=== PATIENT | female | born 1995 | race Two or more races ===

== ENCOUNTER 2018-04-03 17:19 | Emergency (ER) | payer BC ==
[~2018-04-03] VITALS: Ht 160 cm; Wt 52.6 kg
--- NOTE | 2018-04-03 17:30 | NUR ---
PT CAME IN WITH C/O RIGHT MANDIBULAR AREA SWELLING X 2 DAYS. SEEN BY FOR EVAL. SAFETY AND COMFORT MEASURE PROVIDED. WILL MONITOR.
[2018-04-03] MEDS ORDERED: ONDANSETRON HCL/PF 4 MG/2 ML VIAL IVP ONE (18:00)
[2018-04-03] MEDS ORDERED: IV NS 0.9% 1,000 ML BAG IV ONE (18:00)
[2018-04-03] MEDS ORDERED: MORPHINE SULFATE INJ 2 MG/ML DISP.SYRIN IV ONE ×2 (18:00→20:30)
[2018-04-03 18:10] LABS: BASOPHILS # (AUTO) 0.2 /CMM (0.0-0.2); BASOPHILS % (AUTO) 1.7 % (0.0-2.0); EOSINOPHILS % (AUTO) 0.1 % (0.0-6.0); HEMATOCRIT 38 % (33-45); HEMOGLOBIN 12.8 g/dL (11.5-14.8); LYMPHOCYTES # (AUTO) 0.9 /CMM (0.8-4.8); MEAN CORPUSCULAR HEMOGLOBIN 30 PG (26.0-33.0); MEAN CORPUSCULAR HGB CONC 34 g/dl (31.0-36.0); MEAN CORPUSCULAR VOLUME 89 fL (82-100); MONOCYTES # (AUTO) 0.7 /CMM (0.1-1.30); MONOCYTES % (AUTO) 5.7 % (2.0-12.0); NEUTROPHILS # (AUTO) 11.3 /CMM (1.8-8.9); NEUTROPHILS % (AUTO) 85.5 % (43.0-81.0); PLATELET COUNT (AUTO) 300 /CMM (150-450); RDW COEFFICIENT OF VARIATION 13.1 (11.5-15.0); RED BLOOD CELL COUNT(AUTO) 4.21 MIL/uL (4.0-5.2); WHITE BLOOD COUNT (AUTO) 13.1 K/uL (4.3-11.0)
[2018-04-03] MEDS ORDERED: MORPHINE SULFATE INJ 4 MG/ML DISP.SYRIN ONE ×2 (18:12→20:04)
[2018-04-03] MEDS ORDERED: ONDANSETRON HCL/PF 4 MG/2 ML VIAL ONE (18:12)
--- NOTE | 2018-04-03 18:15 | NUR ---
IV ACCESS STARTED. BLOOD DRAWN FOR LABS. MEDICATED ORDERED.
[2018-04-03 18:25] LABS: CALCIUM, SERUM 9.5 mg/dL (8.5-10.1); CREATININE 0.8 mg/dL (0.6-1.3); POTASSIUM 3.4 mmol/L (3.5-5.1)
[2018-04-03 18:31] LABS: BILIRUBIN,DIRECT 0.2 mg/dL (0.0-0.2); BILIRUBIN,TOTAL 1.3 mg/dL (0.2-1.0); TOTAL PROTEIN, SERUM 8.1 g/dL (6.4-8.2)
[2018-04-03] MEDS ORDERED: IV NS 0.9% 250 ML IV ONE (19:04)
[2018-04-03] MEDS ORDERED: CT SWABBABLE VALVE TRANS SET 1 EA INFUS.SET MC ONE (19:04)
[2018-04-03] MEDS ORDERED: IOHEXOL-300 100 ML VIAL IV ONE (19:04)
--- NOTE | 2018-04-03 19:12 | NUR ---
REPORT RECEIVED FROM ACE ERVIN FOR MOE.
--- NOTE | 2018-04-03 20:25 | NUR ---
IV removed. Catheter intact and site benign. Pressure and 4x4 applied to site. No bleeding noted. Patient discharged with boyfriend to home in stable condition. Written and verbal after care instructions given, patient instructed not to drive. Patient verbalizes understanding of instruction. Patient is awake and alert to self, day, and place. Patient ambulatory with a steady gait.
[2018-04-03 20:28] VITALS: BP 127/77
== END 2018-04-03 20:29 | disposition home or self-care (01) ==
LOC: ER 17:22
DX: K11.20 Sialoadenitis, unspecified (principal)
CPT/HCPCS: 36415; 70491-TC; 80048-TC; 80076-TC; 83605-TC; 84703-TC; 85025-TC; 85730-TC; 87040-TC; A4606; J2270; J2405; J7030; J7050; Q9967; Z7610

== ENCOUNTER 2018-04-03 22:53 | Inpatient (IN) | payer BC ==
[~2018-04-03] VITALS: Ht 160 cm; Wt 54.9 kg
--- NOTE | 2018-04-03 23:15 | NUR ---
BIB BOYFRIEND C/O FEVER AND TROUBLE SWALLOWING X 10:45PM, WAS D/C HERE FOR SALIVARY STONE, UNABLE TO GET MEDICATION AT PHARMACY. PT IS AAOX4. SKIN HOT AND DRY TO TOUCH. -N/V/D. NO S/S OF ACUTE DISTRESS NOTED. RESP EVEN AND UNLABORED. PT PLACED ON MILITARY LAWYER AND POX. PT SAFETY AND COMFORT MEASURES IN PLACE. AWAITING MD FOR EVAL
[2018-04-03] MEDS ORDERED: CLINDAMYCIN 900 MG/6 ML VIAL ONE (23:19)
[2018-04-03] MEDS ORDERED: KETOROLAC TROMETHAMINE INJ 30 MG/ML VIAL ONE (23:22)
[2018-04-03] MEDS: CLINDAMYCIN 600 MG in IV D5W 50 ML IV SCH (23:27)
[2018-04-03] MEDS ORDERED: KETOROLAC TROMETHAMINE INJ 30 MG/ML VIAL IV ONE (23:30)
[2018-04-03] MEDS ORDERED: IV NS 0.9% 1,000 ML BAG IV ONE ×2 (23:30)
--- NOTE | 2018-04-04 00:12 | NUR ---
REPORT GIVEN TO KIM CARELIA FOR MOE
[2018-04-04 00:33] VITALS: BP 106/65
[2018-04-04 00:35] VITALS: BP 106/65
--- NOTE | 2018-04-04 01:43 | NUR ---
MS MECHANICAL DESIGN ENGINEER FACILITIES NOTED RECEIVED FROM ER PER WHEELCHAIR THIS 22 YO.FEMALE,ALERT,ORIENTED X4, ACCOMPANIED BY BOYFRIEND,AMBULATORY,WITH CHIEF COMPLAINTS OF FEVER AND DIFFICULTY OF SWALLOWING [employer] SAL[employer]IATE BILINGUAL.NO KNOWN ALLERGY,NO SKIN ISSUES.ABLE TO VERBALIZED NEEDS.WITH SALINE LOCK ON RIGHT AC#18 INTACT AND PATENT. DENIES PAIN UPON ARRIVAL ON THE FLOOR.ORIENTED TO ROOM SET.CALL LIGHT IN REACH,NEEDS ANTICIPATED.
[2018-04-04] MEDS ORDERED: MAGNESIUM HYDROXIDE 30 ML UDC PO PRN (02:30)
[2018-04-04] MEDS ORDERED: ONDANSETRON HCL/PF 4 MG/2 ML VIAL IVP PRN (02:30)
[2018-04-04] MEDS ORDERED: MAG HYDROX/AL HYDROX/SIMETH 30 ML UDC PO PRN (02:30)
[2018-04-04] MEDS ORDERED: Z GUARD REMEDY 2 OZ OINT TP PRN (02:30)
[2018-04-04] MEDS ORDERED: MORPHINE SULFATE INJ 2 MG/ML DISP.SYRIN IV PRN ×2 (02:30→17:00)
[2018-04-04] MEDS ORDERED: ZOLPIDEM TARTRATE 5 MG TABLET PO PRN (02:30)
[2018-04-04] MEDS: IV NS 0.9% 1,000 ML IV PRN ×2 (03:34→22:47)
--- NOTE | 2018-04-04 04:03 | NUR ---
MS RN NOTES SPOKE TO PHARMACIST,VERIFIED CLEOCIN 600MG IV Q 8 HOURS,TO BE ADMINISTER AT 0500,FIRST DOSE GIVEN AT 2330,SAID OKAY TO GIVE AT THAT TIME.
[2018-04-04] MEDS ORDERED: CLINDAMYCIN 600 MG in IV NS 0.9% 50 ML IV SCH ×2 (05:00→13:00)
--- NOTE | 2018-04-04 06:05 | NUR ---
MS RN NOTES FAIRLY RESTED,NO N/V/DIARRHEA NOTED,IVF INFUSING,SITE REMAINS PATENT ON RIGHT AC.DUE CLINDAMYCIN 600MG IN D5W 50ML STARTED.AFEBRILE.WILL ENDORSE TO TIGIST BELLO FOR MOE.
[2018-04-04] MEDS ORDERED: CLINDAMYCIN 900 MG/6 ML VIAL ONE (06:14)
[2018-04-04] MEDS: CLINDAMYCIN 600 MG in IV D5W 50 ML IV SCH ×3 (06:20→20:52)
[2018-04-04 07:26] LABS: BASOPHILS % (AUTO) 0.2 % (0.0-2.0); EOSINOPHILS % (AUTO) 0.2 % (0.0-6.0); HEMATOCRIT 33 % (33-45); HEMOGLOBIN 10.9 g/dL (11.5-14.8); LYMPHOCYTES # (AUTO) 1.3 /CMM (0.8-4.8); LYMPHOCYTES % (AUTO) 10.6 % (20.0-44.0); MEAN CORPUSCULAR HEMOGLOBIN 31 PG (26.0-33.0); MEAN CORPUSCULAR HGB CONC 34 g/dl (31.0-36.0); MEAN CORPUSCULAR VOLUME 92 fL (82-100); MONOCYTES # (AUTO) 1.4 /CMM (0.1-1.30); MONOCYTES % (AUTO) 11.6 % (2.0-12.0); NEUTROPHILS # (AUTO) 9.4 /CMM (1.8-8.9); NEUTROPHILS % (AUTO) 77.4 % (43.0-81.0); PLATELET COUNT (AUTO) 241 /CMM (150-450); RDW COEFFICIENT OF VARIATION 13.8 (11.5-15.0); RED BLOOD CELL COUNT(AUTO) 3.55 MIL/uL (4.0-5.2); WHITE BLOOD COUNT (AUTO) 12.2 K/uL (4.3-11.0)
[2018-04-04 07:43] LABS: CALCIUM, SERUM 7.8 mg/dL (8.5-10.1); CREATININE 0.6 mg/dL (0.6-1.3); MAGNESIUM 1.9 mg/dL (1.8-2.4); PHOSPHORUS 2.8 mg/dL (2.5-4.9); POTASSIUM 3.5 mmol/L (3.5-5.1)
[2018-04-04 08:00] VITALS: BP 102/57
--- NOTE | 2018-04-04 08:00 | NUR ---
MS RN AM NOTES RECEIVED PT ALERT,ORIENTED X4,SITTING IN BED AND CAN'T EAT BREAKFAST DUE TO DIFFICULTY IN SWALLOWING BUT ABLE TO SWALLOW THIN LIQUIDS WILL GIVE TYLENOL FOR THROAT PAIN.AMBULATORY,NO SKIN ISSUES.ABLE TO VERBALIZED NEEDS.WITH SALINE LOCK ON RIGHT AC#18 INTACT AND PATENT. CALL LIGHT WITHIN REACH,NEEDS ANTICIPATED.
[2018-04-04] MEDS: ACETAMINOPHEN 325 MG TABLET PO PRN ×3 (08:11→22:43)
[2018-04-04] MEDS: PANTOPRAZOLE 40 MG TABLET.DR PO SCH (08:11)
--- NOTE | 2018-04-04 08:11 | NUR ---
TYLENOL 650 MG PO GIVEN FOR THROAT DISCOMFORT.ABLE TO SWALLOW PILLS WITHOUT DIFFICULTY.PT TEACHING DONE AND OFFERED HOT TEA TO SOOTHE HER THROAT.PT REFUSED AND WANTED APPLE JUICE.GAVE APPLE JUICE TO THE PT.
[2018-04-04] MEDS ORDERED: CLINDAMYCIN IV RTU IN D5W 900 MG/50 ML PIGGYBACK IV SCH (09:30)
--- NOTE | 2018-04-04 10:00 | NUR ---
BROUGHT PT'S TOWELS,TOOTHBRUSH,MOUTHWASH,FRESH SOCKS AND TOOTHPASTE IN THE ROOM FOR PT TO FRESHEN UP.UNHOOKED PT'S IV.PT'S BOYFRIEND AT BEDSIDE.
--- NOTE | 2018-04-04 13:06 | NUR ---
PT C/O THROAT DISCOMFORT AND WAS ASKING IF SHE CAN HAVE IV PAIN MEDICINE.PT TEACHING DONE REGARDING THE IV PAIN NARCOTIC MEDS -ITS RISKS,BENEFITS AND SIDE EFFECTS SPECIALLY AT HER YOUNG AGE OF 22 YRS OLD.PT VERBALIZED TAKING TYLENOL INSTEAD.
--- NOTE | 2018-04-04 13:36 | NUR ---
PT'S BOYFRIEND'S MOM,CJ LEUNG,[employer] FOR THE PT SINCE THE PT WAS HERE FOR 3 MONTHS FROM [place] CALLED AND WAS C/O THAT THE PT STATED THAT SHE IS NOT BEING TAKEN CARED OF REAL WELL AND THAT THE PT WAS C/O THAT SHE DIDN'T RECEIVED ANY PAIN MEDICINE AND HOT TEA SINCE MORNING.EXPLAINED TO CJ THE TIMES I HAVE GIVEN TYLENOL PRN FOR HER THROAT PAIN AND ALSO OFFERED HOT TEA TO THE PT BUT PT REFUSED THE HOT TEA AND THE BOYFRIEND WAS EVEN AT BEDSIDE DURING THAT TIME WHEN I OFFERED THE HOT TEA.I ALSO EXPLAINED THAT THE PT WANTS TO GO AMA AND WAS SO IN A [place]ERV[place]ES TO GO HOME AFTER SIGNING THE AMA PAPERS AT 1213.PT TEACHING WAS GIVEN TO PT TO HAVE THE IV ATB TO BE GIVEN BEFORE TAKING THE IV H/L OUT AND THE IMPORTANCE OF THE IV ATB EVEN IF SHE INSISTS TO TAKE ORAL ATB INSTEAD IF SHE GOES AMA.EXPLAINED TO CJ TO EXPLAIN TO THE PT HERSELF BECAUSE SHE SAYS THINGS CONTRADICTORY TO MINE.ORDERED TWO HOT BROTH AN HOT TEA FOR THE PT.ALSO SPOKE TO THE PT AND REITERATED THE TEA THAT IS BEING OFFERED IN WHICH SHE IS REFUSING.PT JUST SMILED.EXPLAINED THAT THE TYLENOL IS GIVEN PRN AND ITS SIDE EFFECTS.
[2018-04-04] MEDS: HYDROCODONE/APAP 5/325MG 1 EACH TABLET PO PRN ×2 (15:12→19:57)
[2018-04-04 16:00] VITALS: BP 116/66
--- NOTE | 2018-04-04 16:30 | NUR ---
DR ESCOBEDO ARRIVED AND SAW THE PT WITH ORDERS MADE AND CARRIED OUT.
--- NOTE | 2018-04-04 16:35 | NUR ---
CHECKED ON PT/BOYFRIEND AND FINALLY THEY'RE HAPPY SEEING THE DOCTOR AND PT STATED SHE WILL STAY.
[2018-04-04] MEDS ORDERED: MENTHOL/CETYLPYRD (CEPACOL) 1 LOZ LOZENGE PO PRN (17:00)
[2018-04-04] MEDS ORDERED: PHENOL/SODIUM PHENOLATE 1 LOZ LOZENGE PO ONE (17:00)
[2018-04-04] MEDS ORDERED: KETOROLAC TROMETHAMINE INJ 30 MG/ML VIAL IM PRN (17:00)
[2018-04-04] MEDS: LIDOCAINE VISCOUS 2% UD 15 ML UDC MM SCH (17:34)
[2018-04-04] MEDS ORDERED: PIPERACILLIN /TAZOBACTAM 4.5 G in IV NS 0.9% 50 ML IV SCH (18:00)
[2018-04-04] MEDS: ZOSYN IVPB 3.375 G in IV D5W 50ml IV SCH ×2 (18:15→23:46)
[2018-04-04 20:00] VITALS: BP 104/74
--- NOTE | 2018-04-04 20:00 | NUR ---
RN NOTES PATIENT IS ALERT AND ORIENTED X4, COMPLAINING OF JAW PAIN, GIVEN NORCO 5/325 1 TAB, ABLE TO SWALLOW MEDICATION, DRINKING WATER, NO N/V, MADE COMFORTABLE, CALL LIGHT WITHIN REACH, WILL CONTINUE TO MONITOR
[2018-04-04 22:00] VITALS: BP 104/74
[2018-04-05] MEDS: LIDOCAINE VISCOUS 2% UD 15 ML UDC MM SCH ×3 (00:01→16:34)
[2018-04-05] MEDS: CLINDAMYCIN 600 MG in IV D5W 50 ML IV SCH ×3 (04:46→21:00)
[2018-04-05] MEDS: ZOSYN IVPB 3.375 G in IV D5W 50ml IV SCH ×4 (05:51→23:47)
--- NOTE | 2018-04-05 06:11 | NUR ---
RN NOTES PATIENT IS ALERT AND AWAKE, HAS DIFFICULTY SWALLOWING DUE TO MANDIBULAR PAIN, REQUESTED NORCO, BEING MONITORED FOR TEMPERATURE, LAST TEMP 98.2F, GIVEN TYLENOL, LAST TEMPERATURE 98.2F, GIVEN ZOSYN AND CLEOCIN SCHEDULED, NO ADVERSE SIDE EFFECTS, AMBULATES TO THE TOILET, ON IVF, MADE COMFORTABLE, CALL LIGHT WITHIN REACH.
--- NOTE | 2018-04-05 07:00 | NUR ---
MS2RN. PT RECEIVED A&0X3, TOLERATING ROOM AIR AND REPORTING CURRENT PAIN MANAGEMENT ADEQUATE. PT WITH SWELLING NOTED TO RIGHT LATERAL NECK AND JAW. PT WITH IVC INTACT AND OPERATIONAL WITH IVF PER RX. BED IN LOWEST LOCKED POSITION WITH HANDRAILSX2 AND CALL MENG WITHIN REACH, PT BRIEFED ON TODAY'S POC AND IS WITHOUT CONCERN OR COMPLAINT AT THIS TIME.
[2018-04-05 08:00] VITALS: BP 112/70
--- NOTE | 2018-04-05 08:37 | NUR ---
MS2RN. PHARMACY CALLED TO REQUEST PT'S REPORTED STATUS R/T LAB RESULTS. PT REPORTS FIRST DAY OF MENSTRUATION TODAY. PHARMACY NOTIFIED.
[2018-04-05] MEDS: PANTOPRAZOLE 40 MG TABLET.DR PO SCH (09:02)
[2018-04-05] MEDS: HYDROCODONE/APAP 5/325MG 1 EACH TABLET PO PRN ×3 (11:06→21:00)
--- NOTE | 2018-04-05 13:00 | NUR ---
MS2RN. PT UNABLE TO EAT LUNCH R/T ORAL PAIN, DIET SWAPPER PER MD ESCOBEDO TO REGULAR SOFT FINE CHOPPED.
[2018-04-05 16:00] VITALS: BP 115/71
[2018-04-05] MEDS: IV NS 0.9% 1,000 ML IV PRN (17:56)
--- NOTE | 2018-04-05 18:24 | NUR ---
MS2RN CLOSING. PT REMAINS A&0X3, BF AT BEDSIDE. PT TOLERATING ROOM AIR AND REPORTING CURRENT PAIN MANAGEMENT ADEQUATE. PT WITH IVC INTACT AND OPERATIONAL WITH IVF PER RX. BED IN LOWEST LOCKED POSITION WITH HANDRAILSX2 AND CALL MENG WITHIN REACH,ALL DAY NURSE DUTIES ATTENDED TO AND PT IS WITHOUT CONCERN OR COMPLAINT AT THIS TIME, WILL ENDORSE TO NIGHT NURSE AT BEDSIDE FOR MOE.
[2018-04-05 20:00] VITALS: BP 138/73
--- NOTE | 2018-04-05 20:00 | NUR ---
RN NOTES PATIENT IS ALERT AND ORIENTED X4, NO RESPIRATORY DISTRESS, COMPLAINING OF PAIN TO RIGHT JAW, REPORTED PAIN ON SWALLOWING, ABLE TO SWALLOW MEDICATIONS, ON IV ABX AND CONTINUOUS IV FLUIDS. PROVIDED HEAT PACK, MADE COMFORTABLE, CALL LIGHT WITHIN REACH.
[2018-04-05 22:00] VITALS: BP 138/73
[2018-04-06] MEDS: LIDOCAINE VISCOUS 2% UD 15 ML UDC MM SCH ×2 (00:26→08:08)
[2018-04-06] MEDS: CLINDAMYCIN 600 MG in IV D5W 50 ML IV SCH ×2 (04:47→13:24)
[2018-04-06] MEDS: ZOSYN IVPB 3.375 G in IV D5W 50ml IV SCH ×2 (05:59→11:38)
--- NOTE | 2018-04-06 06:56 | NUR ---
RN NOTES PATIENT IS ALERT AND AWAKE, NO DISTRESS, NO ADVERSE CHANGE OF CONDITION DURING SHIFT, SLEPT FOR 7 HOURS, GIVEN NORCO FOR RIGHT JAW PAIN, ALL IV ABX GIVEN, MADE COMFORTABLE, CALL LIGHT WITHIN REACH.
--- NOTE | 2018-04-06 07:00 | NUR ---
MS2RN, PT RESTING COMFORTABLY WITHOUT S/S DISTRESS OR DISCOMFORT WITH BREATHING EVEN AND LABORED. PT WITH IVC VISUALIZED INTACT AND OPERATIONAL. PT BED IN LOWEST LOCKED POSITION WITH HANDRAILSX2 CALL MENG WITHIN REACH. WILL BRIEF AND ASSESS PT ON POC WHEN AWAKE.
[2018-04-06 07:22] LABS: BASOPHILS % (AUTO) 0.4 % (0.0-2.0); CALCIUM, SERUM 8.1 mg/dL (8.5-10.1); CREATININE 0.6 mg/dL (0.6-1.3); EOSINOPHILS % (AUTO) 0.7 % (0.0-6.0); HEMATOCRIT 31 % (33-45); HEMOGLOBIN 10.3 g/dL (11.5-14.8); LYMPHOCYTES # (AUTO) 1.4 /CMM (0.8-4.8); LYMPHOCYTES % (AUTO) 14.1 % (20.0-44.0); MAGNESIUM 1.9 mg/dL (1.8-2.4); MEAN CORPUSCULAR HEMOGLOBIN 30 PG (26.0-33.0); MEAN CORPUSCULAR HGB CONC 33 g/dl (31.0-36.0); MEAN CORPUSCULAR VOLUME 92 fL (82-100); MONOCYTES # (AUTO) 0.9 /CMM (0.1-1.30); MONOCYTES % (AUTO) 9.1 % (2.0-12.0); NEUTROPHILS # (AUTO) 7.3 /CMM (1.8-8.9); NEUTROPHILS % (AUTO) 75.7 % (43.0-81.0); PHOSPHORUS 3.2 mg/dL (2.5-4.9); PLATELET COUNT (AUTO) 240 /CMM (150-450); POTASSIUM 3.4 mmol/L (3.5-5.1); RDW COEFFICIENT OF VARIATION 13.9 (11.5-15.0); WHITE BLOOD COUNT (AUTO) 9.7 K/uL (4.3-11.0)
[2018-04-06 08:00] VITALS: BP 108/66
[2018-04-06] MEDS: PANTOPRAZOLE 40 MG TABLET.DR PO SCH (08:08)
[2018-04-06] MEDS: HYDROCODONE/APAP 5/325MG 1 EACH TABLET PO PRN ×2 (08:09→14:00)
[2018-04-06] MEDS ORDERED: AMOX-430 PO (10:39)
[2018-04-06] MEDS ORDERED: POTASSIUM CHLORIDE 20 MEQ POWDER PACKET PO SCH (11:30)
--- NOTE | 2018-04-06 14:30 | NUR ---
MS2RN. PT PREPARED FOR D/C PER MD. PT TOLERATING ROOM AIR WITHOUT DISTRESS. PT REPORTS CURRENT PAIN MANAGEMENT ADEQUATE. PT IVC REMOVED AND NAD AT SITE. PT WITH ALL BELONGINGS AND DOCUMENT SIGNED. PT AND BF BRIEFED ON SO D/C PACKET AND ARE VERBALIZING UNDERSTANDING, RESOURCES AND INTENT TO FOLLOW POC. PT PROVIDED WITH ALL DETAILS FOR FOLLOW UPS AND WILL PRESENT TO APPOINTMENT AT 1715 TODAY. ALL DAY NURSE DUTIES ATTENDED TO AND PT LEFT WITHOUT CONCERN OR COMPLAINT AND GRATEFUL FOR CARE.
== END 2018-04-06 14:30 | disposition home or self-care (01) | DRG 156 ==
LOC: ER 22:55 → MEDSG2 23:57
PROVIDERS: ADMIT Hospitalist; ATTEND Hospitalist
DX: K11.21 Acute sialoadenitis (principal); K11.5 Sialolithiasis
CPT/HCPCS: 36415; 80048-TC; 80061-TC; 83735-TC; 84100-TC; 84702-TC; 85025-TC; 87081-TC; A4216; A4606; J1885; J2270; J2543; J3490; J7030; J7040; J7060; Z7610